=== PATIENT | male | born 1945 | race Caucasian/White ===

== ENCOUNTER 2019-07-10 10:07 | Outpatient (CLI) | payer MEDICARE, OTHER, SELFPAY ==
[2019-07-10 10:58] LABS: Basophils Percent Auto 0.4 % (0.2-1.2); Eosinophils Absolute Auto 0.1 K/mm3 (0-0.3); Eosinophils Percent Auto 1.7 % (0-4.4); Hemoglobin 12.2 g/dL (14.0-18.0); Immature Granulocyte Absolute 0.04 K/mm3 (0.00-0.031); Immature Granulocyte Percent A 0.6 % (0-0.5); Lymphocytes Absolute Auto 1.28 K/mm3 (0.9-3.2); Lymphocytes Percent Auto 18.6 % (18.3-44.2); Mean Corpuscular HGB Conc 33.9 g/dl (32-36); Mean Corpuscular Hemoglobin 33.8 pg (26-34); Mean Corpuscular Volume 99.7 fl (80-100); Mean Platelet Volume 10.3 fl (7.4-10.4); Monocytes Absolute Auto 0.5 K/mm3 (0.1-0.6); Monocytes Percent Auto 7.7 % (2.6-8.5); Neutrophils Absolute Auto 4.9 K/mm3 (1.3-6.7); Platelet Count Result 160 k/mm3 (150-375); Red Blood Count 3.61 M/mm3 (4.6-6.20); Red Cell Distribution Width 13.4 % (11.5-14.5); White Blood Count 6.9 K/mm3 (4.5-10.0)
[2019-07-10 11:11] LABS: Alanine Aminotransferase 17 U/L (4-50); Albumin Level 3.9 g/dL (3.5-5.1); Alkaline Phosphatase 60 U/L (38-126); Aspartate Amino Transferase 19 U/L (17-59); Bilirubin,Total 0.4 mg/dL (0.2-1.3); Blood Urea Nitrogen 41 mg/dL (9-20); Calcium 9.5 mg/dL (8.4-10.2); Carbon Dioxide 26 mmol/L (22-30); Chloride 103 mmol/L (98-107); Cholesterol 164 mg/dL (0-200); Estimated Glomerular Filt Rate 10; Glucose 105 mg/dL (75-110); HDL Direct 36 mg/dL; Potassium 4.7 mmol/L (3.4-5.0); Sodium 138 mmol/L (137-145); Triglycerides 147 mg/dL (<150)
[2019-07-10 11:22] LABS: LDL Cholesterol Direct 95 mg/dL
[2019-07-10 11:22] LABS: Creatinine Urine 138.1 mg/dL
[2019-07-10 11:41] LABS: Thyroid Stimulating Hormone 0.806 uIU/mL (0.465-4.680); Total Triiodothyronine (T3) 1.09 NG/ML (0.97-1.69)
[2019-07-10 11:44] LABS: MALB Creatinine Ratio 158.9 mg/g (0-30); Microalbumin Urine Random 219.5 mg/L (0-16.7)
[2019-07-10 12:00] LABS: Free T4 Free Thyroxine 0.94 ng/mL (0.78-2.19); Vitamin D 25 Hydroxy 28.8 ng/mL
== END 2019-07-10 10:08 | disposition home or self-care (01) ==
PROVIDERS: PCP Family Medicine; Visit Provider Nurse Practitioner Family
DX: N18.6 End stage renal disease (principal); I48.0 Paroxysmal atrial fibrillation; R97.20 Elevated prostate specific antigen [PSA]; E78.1 Pure hyperglyceridemia; I12.0 Hypertensive chronic kidney disease with stage 5 chronic kidney disease or end stage renal disease; D64.9 Anemia, unspecified; R53.83 Other fatigue; Z12.5 Encounter for screening for malignant neoplasm of prostate
CPT/HCPCS: 36415; 80053; 80061; 82043; 82306; 84153; 84439; 84443; 84480; 85025; G0103

== ENCOUNTER 2019-09-20 09:50 | Outpatient (CLI) | payer MEDICARE, OTHER, SELFPAY | END 2019-09-20 09:51 | disposition home or self-care (01) | LOC: ANHLAB 09:54 | PROVIDERS: PCP Family Medicine; Visit Provider Internal Medicine Cardiovascular Disease | DX: I48.0 Paroxysmal atrial fibrillation (principal); Z79.01 Long term (current) use of anticoagulants; Z79.899 Other long term (current) drug therapy | CPT/HCPCS: 36415; 80299 ==

== ENCOUNTER 2019-11-16 15:37 | Emergency (ER) | payer MEDICARE, OTHER, SELFPAY ==
[2019-11-16 15:50] VITALS: BP 132/89; PULSE 111; RESP 18; TEMP 36.6; O2SAT 99
[2019-11-16 16:13] LABS: Basophils Percent Auto 0.2 % (0.2-1.2); Eosinophils Absolute Auto 0.1 K/mm3 (0-0.3); Eosinophils Percent Auto 1.1 % (0-4.4); Hematocrit 35.5 % (42.0-52.0); Hemoglobin 12.1 g/dL (14.0-18.0); Immature Granulocyte Absolute 0.04 K/mm3 (0.00-0.031); Immature Granulocyte Percent A 0.5 % (0-0.5); Lymphocytes Absolute Auto 1.75 K/mm3 (0.9-3.2); Lymphocytes Percent Auto 21.5 % (18.3-44.2); Mean Corpuscular HGB Conc 34.1 g/dl (32-36); Mean Corpuscular Hemoglobin 34.3 pg (26-34); Mean Corpuscular Volume 100.6 fl (80-100); Mean Platelet Volume 10.8 fl (7.4-10.4); Monocytes Absolute Auto 0.6 K/mm3 (0.1-0.6); Monocytes Percent Auto 7.5 % (2.6-8.5); Neutrophils Absolute Auto 5.6 K/mm3 (1.3-6.7); Neutrophils Percent Auto 69.2 % (45.5-73.1); Platelet Count Result 160 k/mm3 (150-375); Red Blood Count 3.53 M/mm3 (4.6-6.20); Red Cell Distribution Width 13.4 % (11.5-14.5); White Blood Count 8.1 K/mm3 (4.5-10.0)
[2019-11-16 16:20] LABS: Alanine Aminotransferase 18 U/L (4-50); Albumin Level 4.3 g/dL (3.5-5.1); Alkaline Phosphatase 72 U/L (38-126); Anion Gap 13.3 mmol/L (7-16); Aspartate Amino Transferase 23 U/L (17-59); Bilirubin,Total 0.4 mg/dL (0.2-1.3); Blood Urea Nitrogen 21 mg/dL (9-20); Calcium 8.5 mg/dL (8.4-10.2); Carbon Dioxide 29 mmol/L (22-30); Chloride 95 mmol/L (98-107); Estimated CRCL calculation 15 ml/min; Estimated Glomerular Filt Rate 16; Glucose 112 mg/dL (75-110); Potassium 3.3 mmol/L (3.4-5.0); Sodium 134 mmol/L (137-145)
[2019-11-16 16:52] LABS: INR 2.2; Prothrombin Time 24.4 Seconds (11.1-14.7)
[2019-11-16 16:55] LABS: Partial Thromboplastin Time 32.6 SECONDS (22.3-36.8)
--- NOTE | 2019-11-16 17:25 | PC.NURSE ---
Attempted to urinate but is unable to.
--- NOTE | 2019-11-16 17:35 | ED.MALEGU ---
HPI - Male Genitourinary General Chief complaint: Recheck/Abnormal Lab/Rx Stated complaint: Blood in Urine Time Seen by Provider: 11/16/19 16:45 Source: patient Mode of arrival: ambulatory Limitations: no limitations History of Present Illness HPI Narrative: 74-year-old male who is a hemodialysis patient of Dr. Hernandez He is not sure what renal disorder caused his kidney failure that caused him to be on dialysis He is also on Coumadin he believes for atrial fibrillation He came to the ER today because he noticed gross hematuria He states that this happens all the time when his INR is 8 or 9, but it does not happen that often He has had some kidney stones in the past but does not have any discomfort currently To the best of his knowledge his hematuria has never been evaluated Onset (ago): day(s) Duration: intermittent Related Data Home Medications Medication Instructions Recorded Confirmed cinacalcet 30 mg PO DAILY 11/16/19 flecainide 11/16/19 meclizine mg 11/16/19 metoprolol tartrate 11/16/19 warfarin [Coumadin] 9 mg PO DAILY 11/16/19 Allergies Allergy/AdvReac Type Severity Reaction Status Date / Time No Known Allergies Allergy Verified 11/16/19 16:02 Review of Systems Review of Systems: All systems reviewed & are unremarkable except as noted in HPI and below Constitutional: Constitutional: Reports no additional constitutional complaints ENT: Reports system reviewed and no additional complaints, except as documented Cardiovascular: Cardiovascular: Reports no additional cardiovascular complaints Respiratory: Respiratory: Reports no additional respiratory complaints Gastrointestinal: Gastrointestinal: Reports no additional gastrointestinal complaints Genitourinary: Genitourinary: Reports no additional male genitourinary complaints and Reports as per HPI Musculoskeletal: Musculoskeletal: Reports no additional musculoskeletal complaints Neurologic: Reports system reviewed and no additional complaints, except as documented Hematologic/Lymphatic: Hematologic/Lymphatic: Reports easy bleeding and Reports easy bruising [facility] Social History Social History Gender identity (if verbalized by the patient): Male Exam Const: General: cooperative, comfortable and no acute distress HENMT: Head: normal to inspection Mouth: Yes moist mucous membranes abnormal Eyes: Conjunctivae: conjunctivae normal Pupils: Equal, round and reactive pupils present Resp: Effort & Inspection: normal respiratory effort and able to speak in complete sentences GI: GI Palp: No abdominal tenderness and Yes Soft to palpation : General: Yes no CVA tenderness Back/Spine/Pelvis: Back: no CVA tenderness Course Vital Signs Vital signs: Vital Signs Temperature 36.6 C 11/16/19 15:50 Pulse Rate 111 H 11/16/19 15:50 Respiratory Rate 18 11/16/19 15:50 Blood Pressure 132/89 11/16/19 15:50 Pulse Oximetry 99 11/16/19 15:50 Temperature 36.6 C 11/16/19 15:50 Pulse Rate 111 H 11/16/19 15:50 Respiratory Rate 18 11/16/19 15:50 Blood Pressure 132/89 11/16/19 15:50 Pulse Oximetry 99 11/16/19 15:50 MDM - Male Genitourinary MDM Narrative Medical decision making narrative: d/w dr lambert crf was due to obstructive nephropathy he is supposed to be following with dr kat lei Lab Data Result diagrams: 11/16/19 15:58 11/16/19 15:58 Labs: Lab Results 11/16/19 11/16/19 11/16/19 Range/Units 15:58 15:58 15:58 WBC 8.1 (4.5-10.0) K/mm3 RBC 3.53 L (4.6-6.20) M/mm3 Hgb 12.1 L (14.0-18.0) g/dL Hct 35.5 L (42.0-52.0) % MCV 100.6 H (80-100) fl MCH 34.3 H (26-34) pg MCHC 34.1 (32-36) g/dl RDW 13.4 (11.5-14.5) % Plt Count 160 (150-375) k/mm3 MPV 10.8 H (7.4-10.4) fl Immature Gran % (Auto) 0.5 (0-0.5) % Neut % (Auto) 69.2 (45.5-73.1) % Lymph
[2019-11-16 18:53] LABS: Add Urine Microscopic? YES; Appearance Urine Cloudy (Clear); Bacteria Urine Trace /hpf; Bilirubin Urine Negative (Negative); Blood Urine 3+ (Negative); Color Urine Red (Yellow); Glucose Urine UA 1+ mg/dL (Negative); Ketones Urine Trace mg/dL (Negative); Leukocyte Esterase Ur Trace LEU/UL (Negative); Nitrate Urine Negative (Negative); Protein Urine 3+ mg/dL (Negative); RBC Urine >75 /hpf (0-2); Specific Grav Ur 1.013 (1.001-1.035); Urobilinogen Urine Negative mg/dL (<2.0); WBC Clumps Urine Present /HPF; WBC Urine 16-20 /hpf
[2019-11-16 19:16] VITALS: BP 130/81; PULSE 100; RESP 19; O2SAT 97
== END 2019-11-16 19:17 | disposition home or self-care (01) ==
PROVIDERS: Emergency Medicine; Emergency Provider Emergency Medicine; PCP Family Medicine
DX: R31.9 Hematuria, unspecified (principal); N18.6 End stage renal disease; Z99.2 Dependence on renal dialysis; Z87.442 Personal history of urinary calculi; Z79.01 Long term (current) use of anticoagulants
CPT/HCPCS: 36415; 80053; 81001; 85025; 85610; 85730; 87086; 87088; 99283

== ENCOUNTER 2020-02-14 13:26 | Outpatient (CLI) | payer MEDICARE, OTHER, SELFPAY ==
[2020-02-14 13:45] VITALS: BP 90/60; PULSE 165; RESP 16
[2020-02-14 14:30] LABS: Cholesterol 165 mg/dL (0-200); HDL Direct 31 mg/dL; Triglycerides 306 mg/dL (<150)
[2020-02-14 14:41] LABS: LDL Cholesterol Direct 84 mg/dL
[2020-02-14 14:59] LABS: Free T4 Free Thyroxine 1.83 ng/mL (0.78-2.19)
[2020-02-14 15:02] LABS: Prostate Specific Antigen 14.8 ng/mL (< OR = 4.0); Thyroid Stimulating Hormone 0.188 uIU/mL (0.465-4.680); Total Triiodothyronine (T3) 0.78 NG/ML (0.97-1.69)
== END 2020-02-14 13:27 | disposition home or self-care (01) ==
PROVIDERS: PCP Family Medicine; Visit Provider Nurse Practitioner Family
DX: R97.20 Elevated prostate specific antigen [PSA] (principal); R53.83 Other fatigue; Z12.5 Encounter for screening for malignant neoplasm of prostate; Z13.220 Encounter for screening for lipoid disorders; Z13.29 Encounter for screening for other suspected endocrine disorder; E78.1 Pure hyperglyceridemia
CPT/HCPCS: 36415; 80061; 84153; 84439; 84443; 84480; G0103

== ENCOUNTER 2020-03-03 16:00 | Outpatient (CLI) | payer MEDICARE, OTHER, SELFPAY ==
--- NOTE | ~2020-03-03 | XR_ITS ---
EXAMINATION: XR chest 2V DATE: 03/03/2020 16:26 INDICATION: Shortness of breath. Dizziness. TECHNIQUE: Frontal and lateral views of the chest were obtained. COMPARISON: Chest 2 views 10/31/2015 FINDINGS: A calcified right lung nodule and calcified right hilar lymph nodes are consistent with old granulomatous disease. There is mild scarring at the lung apices. There are mild airspace opacities in right midlung zone and left lower lung zone. No pleural effusion or pneumothorax. The heart size i s normal. IMPRESSION: 1. Mild airspace opacities in right midlung zone and left lower lung zone, consistent with atelectasi s versus pneumonia. Reviewed, dictated and finalized at location B. KEEPER IMPRESSION: 1. Mild airspace opacities in right midlung zone and left lower lung zone, cons istent with atelectasis versus pneumonia.
== END 2020-03-03 16:01 | disposition home or self-care (01) ==
LOC: ANHIMG 16:05
PROVIDERS: PCP Family Medicine; Visit Provider Nurse Practitioner Family
DX: R06.02 Shortness of breath (principal); N18.6 End stage renal disease; I48.91 Unspecified atrial fibrillation; R42 Dizziness and giddiness; R91.1 Solitary pulmonary nodule; Z99.2 Dependence on renal dialysis
CPT/HCPCS: 71046

== ENCOUNTER 2020-03-03 16:26 | Observation (INO) | payer MEDICARE, OTHER, SELFPAY ==
[2020-03-03] VITALS (26 sets, daily range): BP systolic 109–137; BP diastolic 58–78; PULSE 100–113; RESP 13–25; TEMP 36.4–37.6; O2SAT 95–100; BMI 25.2
--- NOTE | ~2020-03-03 | CT_ITS ---
EXAMINATION: CT brain wo con DATE: 03/03/2020 17:17 INDICATION: Confusion TECHNIQUE: Computed tomography (CT) of the head was performed without intravenous contrast. Sagittal and coronal reconstructions were performed. The mA was adjusted according to patient size. Iterative reconstruction technique was employed. The dose-length product was 605.33 mGy-cm. COMPARISON: None FINDINGS: No acute intracranial hemorrhage, acute infarction or mass/mass effect. A couple small old lacunar in farcts in the left frontal lobe white matter and one in the right frontal lobe white matter. There is symmetric prominence of the sulci consistent with mild age-appropriate diffuse cerebral volume loss. Ventricles are normal and symmetric. Mild scattered periventricular and subcortical white matter hyp oattenuation consistent with chronic small vessel ischemic disease. Mucosal thickening the left ethm oid and maxillary sinuses. The orbits and mastoid air cells are normal. Intracranial calcified cerebr al atherosclerosis is noted. IMPRESSION: 1. Small old lacunar infarcts in the left and right frontal lobe white matter. 2. Age-related changes including mild diffuse volume loss and mild scattered white matter hypoattenua tion consistent with chronic small vessel ischemic disease. Reviewed, dictated and finalized at location A. TRAFFIC CONTROL EQUIPMENT REPAIRER IMPRESSION: 1. Small old lacunar infarcts in the left and right frontal lobe white matter. 2. Age-related changes including mild diffuse volume loss and mild scattered wh ite matter hypoattenuation consistent with chronic small vessel ischemic diseas e.
--- NOTE | 2020-03-03 17:10 | ED.SOB ---
HPI - SOB/Dyspnea General Chief Complaint: Shortness of Breath/Dyspnea Stated Complaint: Multiple Complaints, SOB, Low BP Time Seen by Provider: 03/03/20 16:39 History of Present Illness HPI Narrative: Patient is a 74-year-old male who presents the ER with complaints of shortness of breath and low blood pressure. Patient reports he has had exertional shortness of breath for 3 weeks since having COVID-19. Because of his shortness of breath his primary care physician sent him to have an outpatient chest x-ray. While walking back from having his x-ray patient got lightheaded and was acting off so you are not which was normal his blood pressure was taken and found to be low and he was sent to the ER for further evaluation. On 02/28/2020 patient suffered a nosebleed and had recurrence the next day. He ended up having a Rhino Rocket placed. It was found that his INR was 10. He was given vitamin K. His most recent INR was 1.2 on 03/01/2020. He is also at the doctor today to find out when he should initiate his Coumadin again. He still has his Rhino Rocket in place. Patient's family members present reports that his mannerisms are markedly slower than typical and he is having difficulty with quick recall and some understanding of questions. Related Data Home Medications Medication Instructions Recorded Confirmed cinacalcet 30 mg PO DAILY 11/16/19 flecainide 11/16/19 meclizine mg 11/16/19 metoprolol tartrate 11/16/19 warfarin [Coumadin] 9 mg PO DAILY 11/16/19 Allergies Allergy/AdvReac Type Severity Reaction Status Date / Time No Known Allergies Allergy Verified 11/16/19 16:02 Review of Systems Review of Systems: All systems reviewed & are unremarkable except as noted in HPI and below Constitutional: Constitutional: Denies chills, Denies fever(s) and Reports weakness ENT: Denies nasal congestion and Denies sore throat Comments: Recent nosebleed Cardiovascular: Cardiovascular: Denies chest pain, Denies rapid heart rate and Denies radiating jaw, neck or arm pain Respiratory: Respiratory: Denies cough, Reports dyspnea and Denies wheezing [facility] Past Medical History Medical History (Updated 03/03/20 @ 22:31 by Adin Mckenzie MD) Atrial fibrillation End stage renal disease GERD (gastroesophageal reflux disease) Surgical History Surgical History (Updated 03/03/20 @ 17:15 by Adin Mckenzie MD) H/O prostatectomy Social History Social History Gender identity (if verbalized by the patient): Male Exam Narrative: Exam Narrative: GENERAL: Well-appearing, well-nourished, and in no acute distress. HEAD: Normocephalic, atraumatic. ENT: Left with Rhino Rocket present with clotted blood surrounding it. CHEST: Clear to auscultation. No respiratory distress. HEART: Regular rate and rhythm. Normal peripheral pulses. ABDOMEN: Soft, nontender, nondistended. EXTREMITIES: Normal range of motion. No edema. SKIN: Warm, dry, no rash. NEURO: Alert and oriented x3. PSYCH: Normal mood and affect. Course Course Emergency Course: Admit for observation blood transfusion. Symptomatic anemia. Hospitalist has accepted the patient. INR subtherapeutic, will hold of on correction until he can be seen by ENT for rapid rhino removal. Vital Signs Vital signs: Vital Signs Blood Pressure 124/58 L 03/03/20 16:40 Pulse Oximetry 100 03/03/20 16:40 Temperature 99.5 F 03/03/20 21:20 Pulse Rate 100 03/03/20 21:20 Respiratory Rate 15 03/03/20 21:20 Blood Pressure 123/68 03/03/20 21:20 Pulse Oximetry 99 03/03/20 21:20 MDM - SOB/Dyspnea Lab Data Result diagrams: 03/03/20 17:44 03/03/20 17:44 Labs: Lab Results 03/03/20 03/03/20 03/03/20 Range/Units 17:44 17:44 17:44 WBC 6.7 (4.5-10.0) K/mm3 RBC 2.20 L (4.6-6.20) M/mm3 Hgb 7.5 L D (14.0-18.0) g/dL Hct 21.9 L (42.0-52.0) % MCV 99.5 (
[2020-03-03 17:49] LABS: Basophils Percent Auto 0.1 % (0.2-1.2); Eosinophils Percent Auto 0.3 % (0-4.4); Hematocrit 21.9 % (42.0-52.0); Hemoglobin 7.5 g/dL (14.0-18.0); Immature Granulocyte Absolute 0.06 K/mm3 (0.00-0.031); Immature Granulocyte Percent A 0.9 % (0-0.5); Lymphocytes Absolute Auto 0.61 K/mm3 (0.9-3.2); Lymphocytes Percent Auto 9.1 % (18.3-44.2); Mean Corpuscular HGB Conc 34.2 g/dl (32-36); Mean Corpuscular Hemoglobin 34.1 pg (26-34); Mean Corpuscular Volume 99.5 fl (80-100); Mean Platelet Volume 9.6 fl (7.4-10.4); Monocytes Absolute Auto 0.6 K/mm3 (0.1-0.6); Monocytes Percent Auto 8.8 % (2.6-8.5); Neutrophils Absolute Auto 5.5 K/mm3 (1.3-6.7); Neutrophils Percent Auto 80.8 % (45.5-73.1); Platelet Count Result 90 k/mm3 (150-375); Red Cell Distribution Width 12.8 % (11.5-14.5); White Blood Count 6.7 K/mm3 (4.5-10.0)
[2020-03-03 18:00] LABS: Chloride 97 mmol/L (98-107); INR 1.1; Partial Thromboplastin Time 33.1 SECONDS (22.3-36.8)
[2020-03-03 18:12] LABS: Anion Gap 7 mmol/L (8-16); Blood Urea Nitrogen 21 mg/dL (9-20); Calcium 8.2 mg/dL (8.4-10.2); Carbon Dioxide 32 mmol/L (22-30); Estimated CRCL calculation 13 ml/min; Estimated Glomerular Filt Rate 13; Glucose 97 mg/dL (75-110); Potassium 3.2 mmol/L (3.4-5.0); Sodium 136 mmol/L (137-145)
--- NOTE | 2020-03-03 19:43 | PC.NURSE ---
Blood consent obtained from patient at this time. Awaiting PRBC's from blood bank. Patient updated.
--- NOTE | 2020-03-03 21:25 | PC.NURSE ---
2124- Report called to SONJA Thornton on IMU floor.
--- NOTE | 2020-03-03 22:58 | ADMGEN ---
This patient, Danyel Sterling, was admitted to IMU Room 214-01. Patient/family oriented to hospital policies and general routines including ID bracelet, bed and alarms, visiting hours, pain management, procedures, bathroom and other care routines, personal items, smoking policy, room service/diet, and visiting hours. Information on how to activate the Rapid Response Team has been discussed. Patient/Family are encouraged to report perceived risks to care and to ask questions if they do not understand what they are told or what they should do. arrived at 2230. report from Nika CASILLAS
--- NOTE | 2020-03-03 23:54 | PM.IMHP ---
H&P: HPI History of Present Illness Date/Time: 03/03/20 23:54 Chief complaint: anemia, subtherapeutic inr Narrative: Danyel Sterling is a 74 year old male has end-stage renal disease and has dialysis Tuesday. The patient did have dialysis today. The patient was diagnosed with COVID about 3 weeks ago. He has been going to [facility] [place] since he was diagnosed with covid 19. The patient has been short of breath since then. The patient has just been very tired. The patient was walking back from having an x-ray here today and got lightheaded and felt like he is going to pass out. On 02/28/2020 the patient suffered a nose bleed and had recurrence next day. The patient has a rhino rocket in place. Who was found have a INR that time he was given vitamin K and his most recent INR is 1.2 on 03/01/2020 patient was restarted on his Coumadin but and overdose. Patient's INR is 1.1 today. Patient is getting 1 unit packed red blood cells. Patient has paroxysmal atrial fibrillation is now in sinus rhythm. That is why he is on Coumadin patient stated he has been holding his metoprolol because his blood pressures been dropping. He still continues to take his flecainide. 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 3.2. GFR 13. Infarcts the left and right frontal lobe white matter. Age-related changes glued mild diffuse volume loss and mild scattered white matter hypoattenuation consistent with small vessel ischemic disease. Admitted to IMU for possible syncopal episode and anemia end-stage renal disease. Date of service is 03/03/2020 Review of Systems Review of Systems: All systems reviewed & are unremarkable except as noted in HPI and below Constitutional: Constitutional: Reports as per HPI and Reports no additional constitutional complaints Eyes: Eyes: Reports as per HPI and Reports no additional eye complaints ENT: Reports system reviewed and no additional complaints, except as documented and Reports Normal hearing present Cardiovascular: Cardiovascular: Reports no additional cardiovascular complaints Respiratory: Respiratory: Reports no additional respiratory complaints and Reports no additional respiratory complaints Gastrointestinal: Gastrointestinal: Reports as per HPI and Reports no additional gastrointestinal complaints Musculoskeletal: Musculoskeletal: Reports no additional musculoskeletal complaints Integumentary/Breasts: Skin/Breast: Reports system reviewed and no additional complaints, except as docu and Reports as per HPI Neurologic: Reports system reviewed and no additional complaints, except as documented, Reports as per HPI and Reports Normal hearing present Psychiatric: Psychiatric: Reports no additional psychiatric complaints and Reports as per HPI Endocrine: Endocrine: Reports no additional endocrine complaints Hematologic/Lymphatic: Hematologic/Lymphatic: Reports no additional hematologic/lymphatic complaints Allergic/Immunologic: Allergic/Immunologic: Reports no additional allergic/immunologic complaints [facility] Past Medical History Medical History (Updated 03/04/20 @ 00:15 by Yancy Turpin NP) Atrial fibrillation BPH (benign prostatic hyperplasia) End stage renal disease Dialysis Tuesday and 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 GERD (gastroesophageal reflux disease) History of 2019 novel coronavirus disease (COVID-19) History of CVA (cerebrovascular accident) Small old lacunar infarcts in the left and right frontal lobe white matter. Hyperparathyroidism Obstructive nephropathy Obstructing nephrolithiasis Paroxysmal atrial fibrillation On daily Coumadin Supratherapeutic INR Surgical History Surgical History (Updated 03/04/20 @ 00:08 by Yancy Turpin NP) H/O lithotripsy H/O prostatectomy S/P dialysis catheter insertion AV fistula left forearm Family History Family History Father Brain aneurysm Mother
[2020-03-04] VITALS (10 sets, daily range): BP systolic 108–122; BP diastolic 59–63; PULSE 97–124; RESP 16–20; TEMP 36.2–36.6; O2SAT 98–100
[2020-03-04 00:16] LABS: Hematocrit 24.3 % (42.0-52.0); Hemoglobin 8.4 g/dL (14.0-18.0)
[2020-03-04] MEDS: dilTIAZem HCl INJ 25 MG/5 ML VIAL 10 MG IV PUSH (01:49)
[2020-03-04 04:58] LABS: Basophils Percent Auto 0.3 % (0.2-1.2); Eosinophils Absolute Auto 0.1 K/mm3 (0-0.3); Eosinophils Percent Auto 0.8 % (0-4.4); Hematocrit 26.9 % (42.0-52.0); Hemoglobin 9.3 g/dL (14.0-18.0); Immature Granulocyte Absolute 0.04 K/mm3 (0.00-0.031); Immature Granulocyte Percent A 0.5 % (0-0.5); Lymphocytes Absolute Auto 0.85 K/mm3 (0.9-3.2); Lymphocytes Percent Auto 11.2 % (18.3-44.2); Mean Corpuscular HGB Conc 34.6 g/dl (32-36); Mean Corpuscular Hemoglobin 33.5 pg (26-34); Mean Corpuscular Volume 96.8 fl (80-100); Mean Platelet Volume 10.2 fl (7.4-10.4); Monocytes Absolute Auto 0.7 K/mm3 (0.1-0.6); Monocytes Percent Auto 9.1 % (2.6-8.5); Neutrophils Percent Auto 78.1 % (45.5-73.1); Platelet Count Result 111 k/mm3 (150-375); Red Blood Count 2.78 M/mm3 (4.6-6.20); White Blood Count 7.6 K/mm3 (4.5-10.0)
[2020-03-04 05:12] LABS: INR 1.2; Prothrombin Time 15.7 Seconds (11.1-14.7)
[2020-03-04 05:20] LABS: Calcium 8.7 mg/dL (8.4-10.2); Lactate Dehydrogenase 300 U/L (313-618); Magnesium 1.9 mg/dL (1.6-2.3)
--- NOTE | 2020-03-04 09:15 | PM.CNNEP ---
Assessment and Plan Additional Plan 1. HAD LOW HGB 7.5- RECEIVED 1 U PRBCS W GOOD RESULT- HEMOGLOBIN UP TO 9.3 2. IF STILL INPT TOMORROW- WILL GET DIALYSIS TOMORROW HERE. 3. EPOGEN MWF 4. HIS HYPOTENSION HAS BEEN INTERMITTENT- CURRENTLY MOSTLY DUE TO ANEMIA. HE HAS BEEN TOLD IN THE PAST TO HOLD METOPROLOL ON DIALYSIS DAYS. History of Present Illness Reason for Consult Consult date: 03/04/20 Chief Complaint Chief complaint: anemia, subtherapeutic inr Review of Systems Review of Systems: Narrative: see h&p and er notes. 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 Hyperparathyroidism Obstructive nephropathy Obstructing nephrolithiasis Paroxysmal atrial fibrillation On daily Coumadin Supratherapeutic INR Surgical History Surgical History (Updated 03/04/20 @ 00:08 by Yancy Turpin NP) H/O lithotripsy H/O prostatectomy S/P dialysis catheter insertion AV fistula left forearm Family History Family History Father Brain aneurysm Mother Acute myocardial infarction Assumed. Patient stated that his mom during the night in her sleep. Social History Social History (Updated 03/04/20 @ 00:10 by Yancy Turpin NP) Social History: The patient is and lives with his . He is a full code. The is the durable power document review attorney for healthcare. The patient has 1 biological son. Patient is a lifelong nonsmoker. He does not use marijuana, alcohol or illegal substances. Smoking status: Never smoker Alcohol intake: never Substance use: never Living arrangements: with family Gender identity (if verbalized by the patient): Male Spiritual care concerns: No Meds Home Medications and Allergies Home Medications Medication Instructions Recorded Confirmed Type cinacalcet 30 mg PO DAILY 11/16/19 03/03/20 History flecainide 50 mg PO DAILY 11/16/19 03/03/20 History meclizine 25 mg PO DAILY 11/16/19 03/03/20 History warfarin [Coumadin] 5 mg PO DAILY 11/16/19 03/03/20 History sevelamer carbonate 800 mg PO TIDWMEAL PRN 03/03/20 03/03/20 History Allergies Allergy/AdvReac Type Severity Reaction Status Date / Time No Known Allergies Allergy Verified 11/16/19 16:02 Vital Signs Vital Signs - 24 hr 03/03/20 16:40 03/03/20 16:41 03/03/20 16:45 Temperature 37.0 C Pulse Rate 104 H Respiratory Rate 25 H Blood Pressure 124/58 L 125/58 L Pulse Oximetry 100 100 100 03/03/20 17:00 03/03/20 17:20 03/03/20 17:22 Temperature Pulse Rate 113 H 100 107 H Respiratory Rate 20 19 Blood Pressure 130/78 Pulse Oximetry 100 100 98 03/03/20 17:30 03/03/20 17:36 03/03/20 17:59 Temperature Pulse Rate 111 H 108 H 110 H Respiratory Rate 17 16 14 Blood Pressure 130/74 Pulse Oximetry 99 98 99 03/03/20 18:00 03/03/20 18:01 03/03/20 18:15 Temperature Pulse Rate 110 H 107 H 108 H Respiratory Rate 17 15 13 Blood Pressure 135/69 Pulse Oximetry 99 99 100 03/03/20 18:30 03/03/20 18:31 03/03/20 18:45 Temperature Pulse Rate Respiratory Rate Blood Pressure 137/77 Pulse Oximetry 98 99 100 03/03/20 19:16 03/03/20 19:17 03/03/20 19:30 Temperature Pulse Rate 112 H 109 H 110 H Respiratory Rate 19 19 16 Blood Pressure 125/61 Pulse Oximetry 96 97 97 03/03/20 19:31 03/03/20 21:05 03/03/20 21:20 Temperature 37.3 C 37.5 C Pulse Rate 107 H 106 H 100 Respiratory Rate 18 19 15 Blood Pressure 109/72 130/72
[2020-03-04] MEDS: MECLIZINE HCL 25 MG TABLET PO (09:25)
[2020-03-04] MEDS: FLECAINIDE ACETATE 50 MG TABLET PO (09:25)
[2020-03-04] MEDS: CINACALCET 30 MG TABLET PO (09:25)
--- NOTE | 2020-03-04 13:48 | PM.DS ---
DS: Admitting Diagnosis Admitting Diagnosis Admitting Diagnosis: anemia, subtherapeutic inr DS: Discharge Diagnosis Discharge Diagnosis (1) Epistaxis: Code(s): R04.0 - Epistaxis Status: Acute Assessment and Plan: The patient has a rhino rocket the left nare This is due to super elevated INR of 10.0. The patient was given vitamin K at that time. Patient's INR is now 1.1 and he has been restarted on his Coumadin. PT to follow with Dr Daniel GUIDO MD. (2) End stage renal disease: Code(s): N18.6 - End stage renal disease Status: Chronic Assessment and Plan: Dialysis on Tuesday. Epogen on the same days. Pt can be discharged and have his dialysis [place] at dialysis center. Pt should hold his metoprolol on the day of dialysis. Pt seen by Dr Haney today, nephrology ok to discharge. (3) Anemia: Code(s): D64.9 - Anemia, unspecified Status: Acute Assessment and Plan: Sp blood transfusion, hb is 9 today (4) Near syncope: Code(s): R55 - Syncope and collapse Status: Acute Assessment and Plan: The patient stated he stop taking his metoprolol and only takes the flecainide for his atrial fib on day of dialysis. (5) Subtherapeutic international normalized ratio (INR): Code(s): R79.1 - Abnormal coagulation profile Status: Acute Assessment and Plan: Patient's INR was 1.1 today he has been restarted his Coumadin. (6) Hyperparathyroidism: Code(s): E21.3 - Hyperparathyroidism, unspecified Status: Chronic Assessment and Plan: Continue with cinacalct (7) Paroxysmal atrial fibrillation: Code(s): I48.0 - Paroxysmal atrial fibrillation Status: Chronic Assessment and Plan: Patient has been restarted on the Coumadin. Continue with the flecainide. (8) Obstructive nephropathy: Code(s): N13.8 - Other obstructive and reflux uropathy Status: Chronic Assessment and Plan: The patient has end-stage renal disease and has dialysis Tuesday. (9) BPH (benign prostatic hyperplasia): Code(s): N40.0 - Benign prostatic hyperplasia without lower urinary tract symptoms Status: Chronic Assessment and Plan: Continue home medication. DS: Summary Time Spent with Patient Time attestation: Total time spent providing and/or coordinating discharge services:40 minutes on the day of discharge Exam Narrative: Exam Narrative: Chronically ill appearing Chest: Chest palpation & inspection: normal inspection of the chest Resp: Effort & Inspection: normal respiratory effort Auscultation: clear to auscultation bilaterally Percussion: percussion normal Cardio: Palpation: normal PMI Rate: regular rate Rhythm: regular rhythm Heart sounds: S1 normal heart sound present and S2 normal heart sound present Peripheral pulses: Peripheral pulses 2+ throughout GI: Inspection: normal to inspection Auscultation: normal bowel sounds Back/Spine/Pelvis: Back: no CVA tenderness Cervical Spine: cervical ROM normal Skin: General skin exam: normal color Lesions: no lesions Rashes: no rashes Trauma: no lacerations or abrasions Wounds: no wounds Hair: normal Nails: normal Neuro: General: oriented to person, oriented to place, oriented to time and patient oriented x3 Cranial nerves: Yes Equal, round and reactive pupils present and Yes Normal hearing present Cognition (Neuro): normal cognition Speech: normal speech Gait exam (Neuro): Normal gait present Motor exam (neuro): 5/5 motor strength present throughout Sensory Exam: normal sensation Extrem: General: normal to inspection Right upper extremity: normal to inspection and shoulder/upper arm Left upper extremity: normal to inspection and shoulder/upper arm (Left upper arm positive bruit and thrill AV fistula) Right lower extremity: normal to inspection Left lower extremity: normal to inspection DS: Data Data Complet
== END 2020-03-04 14:35 | disposition home or self-care (01) ==
LOC: ANHED 16:46 → ANHIMU 22:31
PROVIDERS: Nurse Practitioner; Admitting Provider Family Medicine; Emergency Provider Emergency Medicine; PCP Family Medicine; Visit Provider Family Medicine
DX: R04.0 Epistaxis (principal); N18.6 End stage renal disease; D64.9 Anemia, unspecified; R55 Syncope and collapse; R06.09 Other forms of dyspnea; R79.1 Abnormal coagulation profile; E21.3 Hyperparathyroidism, unspecified; I95.9 Hypotension, unspecified; I48.0 Paroxysmal atrial fibrillation; N13.8 Other obstructive and reflux uropathy; N40.0 Benign prostatic hyperplasia without lower urinary tract symptoms; K21.9 Gastro-esophageal reflux disease without esophagitis; Z86.73 Personal history of transient ischemic attack (TIA), and cerebral infarction without residual deficits; Z86.19 Personal history of other infectious and parasitic diseases; Z99.2 Dependence on renal dialysis; Z79.01 Long term (current) use of anticoagulants
CPT/HCPCS: 36415; 36430; 70450; 71046; 80048; 82310; 83615; 83735; 84443; 85014; 85018; 85025; 85610; 85730; 86850; 86900; 86901; 86923; 96374; 99285; A9270; G0378; P9016

== ENCOUNTER 2020-04-22 09:11 | Outpatient (CLI) | payer MEDICARE, OTHER, SELFPAY | END 2020-04-22 09:12 | disposition home or self-care (01) | PROVIDERS: PCP Family Medicine; Visit Provider Nurse Practitioner Adult Health | DX: I48.0 Paroxysmal atrial fibrillation (principal) | CPT/HCPCS: 36415 ==

== ENCOUNTER 2020-10-21 11:19 | Outpatient (CLI) | payer MEDICARE, OTHER, SELFPAY ==
[2020-10-21 12:04] LABS: Cholesterol 164 mg/dL (0-200); HDL Direct 38 mg/dL; Triglycerides 168 mg/dL (<150)
[2020-10-21 12:15] LABS: LDL Cholesterol Direct 91 mg/dL
== END 2020-10-21 11:20 | disposition home or self-care (01) ==
PROVIDERS: PCP Family Medicine; Visit Provider Internal Medicine Cardiovascular Disease
DX: R09.89 Other specified symptoms and signs involving the circulatory and respiratory systems (principal); Z79.899 Other long term (current) drug therapy
CPT/HCPCS: 36415; 80061; 80181

== ENCOUNTER 2020-11-04 10:20 | Outpatient (CLI) | payer MEDICARE, OTHER, SELFPAY ==
--- NOTE | ~2020-11-04 | US_ITS ---
EXAMINATION: US carotid duplex BI DATE: 11/04/2020 10:55 INDICATION: Left carotid bruit TECHNIQUE: Grayscale, color Doppler, and pulsed Doppler images of the cervical carotid arteries were obtained. The degree of vessel stenosis is placed in one of the following categories: normal, <50%, 5 0-69%, >=70% but less than near-occlusion, near-occlusion, or total occlusion. Note that percent sten osis relative to normal distal artery lumen diameter is indirectly measured from velocity measurement s as described by Scott, et al. Radiology 2003; [id number]. COMPARISON: None. FINDINGS: RIGHT: The right common carotid artery (CCA) peak systolic velocity (PSV) is 97 cm/s. The right internal car otid artery (ICA) PSV is 66 cm/s. The right ICA end-diastolic velocity (EDV) is 21 cm/s. The right IC A/CCA PSV ratio is 0.7. Grayscale and color Doppler images yield an estimate of <50% diameter reducti on from plaque in the ICA. The external carotid artery (ECA) PSV is 65 cm/s. There is antegrade flow in the right vertebral artery. LEFT: The left CCA PSV is 65 cm/s. The left ICA PSV is 67 cm/s. The left ICA EDV is 16 cm/s. The left ICA/C CA PSV ratio is 1.0. Grayscale and color Doppler images yield an estimate of <50% diameter reduction from plaque in the ICA. The ECA PSV is 53 cm/s. There is antegrade flow in the left vertebral artery. IMPRESSION: 1. <50% stenosis in the right internal carotid artery. 2. <50% stenosis in the left internal carotid artery. Reviewed, dictated and finalized at location A.
== END 2020-11-04 10:21 | disposition home or self-care (01) ==
LOC: ANHIMG 10:23
PROVIDERS: PCP Family Medicine; Visit Provider Internal Medicine Cardiovascular Disease
DX: R09.89 Other specified symptoms and signs involving the circulatory and respiratory systems (principal); I65.23 Occlusion and stenosis of bilateral carotid arteries
CPT/HCPCS: 93880

== ENCOUNTER 2021-04-14 11:23 | Outpatient (CLI) | payer MEDICARE, OTHER, SELFPAY | END 2021-04-14 11:24 | disposition home or self-care (01) | PROVIDERS: PCP Family Medicine; Visit Provider Nurse Practitioner Adult Health | DX: Z51.81 Encounter for therapeutic drug level monitoring (principal); Z79.899 Other long term (current) drug therapy | CPT/HCPCS: 36415; 80181 ==

== ENCOUNTER 2021-06-09 13:02 | Outpatient (CLI) | payer MEDICARE, OTHER, SELFPAY | END 2021-06-09 13:03 | disposition home or self-care (01) | LOC: ANHLAB 13:05 | PROVIDERS: PCP Family Medicine; Visit Provider Nurse Practitioner Adult Health | DX: Z79.899 Other long term (current) drug therapy (principal) | CPT/HCPCS: 99199; 36415; 80181 ==

== ENCOUNTER 2021-11-03 12:38 | Outpatient (CLI) | payer MEDICARE, OTHER, SELFPAY ==
[2021-11-03 15:53] LABS: Digoxin < 0.4 ng/mL (0.8-2.0)
== END 2021-11-03 12:39 | disposition home or self-care (01) ==
PROVIDERS: PCP Family Medicine; Visit Provider Internal Medicine Cardiovascular Disease
DX: I48.0 Paroxysmal atrial fibrillation (principal); Z51.81 Encounter for therapeutic drug level monitoring; Z79.899 Other long term (current) drug therapy
CPT/HCPCS: 36415; 80162

== ENCOUNTER 2022-04-23 14:38 | Outpatient (CLI) | payer MEDICARE, OTHER, SELFPAY | END 2022-04-23 14:39 | disposition home or self-care (01) | LOC: ANHLAB 14:43 | PROVIDERS: PCP Family Medicine; Visit Provider Internal Medicine Cardiovascular Disease | DX: Z51.81 Encounter for therapeutic drug level monitoring (principal); Z79.899 Other long term (current) drug therapy; I48.0 Paroxysmal atrial fibrillation | CPT/HCPCS: 36415; 80181 ==

== ENCOUNTER 2022-07-13 10:07 | Outpatient (CLI) | payer MEDICARE, OTHER, SELFPAY ==
[2022-07-13 10:56] LABS: Basophils Percent Auto 0.4 % (0.2-1.2); Eosinophils Absolute Auto 0.1 K/mm3 (0-0.3); Hematocrit 31.3 % (42.0-52.0); Immature Granulocyte Absolute 0.02 K/mm3 (0.00-0.031); Immature Granulocyte Percent A 0.4 % (0-0.5); Lymphocytes Absolute Auto 0.47 K/mm3 (0.9-3.2); Lymphocytes Percent Auto 8.4 % (18.3-44.2); Mean Corpuscular HGB Conc 31.9 g/dl (32-36); Mean Corpuscular Hemoglobin 31.9 pg (26-34); Mean Platelet Volume 9.3 fl (7.4-10.4); Monocytes Absolute Auto 0.4 K/mm3 (0.1-0.6); Monocytes Percent Auto 7.2 % (2.6-8.5); Neutrophils Absolute Auto 4.6 K/mm3 (1.3-6.7); Neutrophils Percent Auto 81.6 % (45.5-73.1); Platelet Count Result 123 k/mm3 (150-375); Red Blood Count 3.13 M/mm3 (4.6-6.20); Red Cell Distribution Width 14.8 % (11.5-14.5); White Blood Count 5.6 K/mm3 (4.5-10.0)
[2022-07-13 13:50] LABS: Erythrocyte Sedimentation Rate 69 mm/hr (0-20)
== END 2022-07-13 10:08 | disposition home or self-care (01) ==
LOC: ANHLAB 10:12
PROVIDERS: PCP Family Medicine; Visit Provider Internal Medicine Cardiovascular Disease
DX: I34.0 Nonrheumatic mitral (valve) insufficiency (principal); N18.6 End stage renal disease
CPT/HCPCS: 36415; 85025; 85652; 87040

== ENCOUNTER 2022-10-05 15:03 | Outpatient (CLI) | payer MEDICARE, OTHER, SELFPAY | END 2022-10-05 15:04 | disposition home or self-care (01) | PROVIDERS: PCP Family Medicine; Visit Provider Internal Medicine Cardiovascular Disease | DX: I48.0 Paroxysmal atrial fibrillation (principal); Z79.899 Other long term (current) drug therapy | CPT/HCPCS: 36415; 80181 ==

== ENCOUNTER 2024-01-25 09:14 | Outpatient (CLI) | payer MEDICARE, OTHER, SELFPAY ==
[2024-01-25 09:42] LABS: Basophils Percent Auto 0.6 % (0.2-1.2); Eosinophils Absolute Auto 0.1 K/mm3 (0-0.3); Eosinophils Percent Auto 2.7 % (0-4.4); Hematocrit 31.8 % (42.0-52.0); Hemoglobin 10.5 g/dL (14.0-18.0); Immature Granulocyte Absolute 0.03 K/mm3 (0.00-0.031); Immature Granulocyte Percent A 0.6 % (0-0.5); Lymphocytes Absolute Auto 0.63 K/mm3 (0.9-3.2); Mean Corpuscular Hemoglobin 33.2 pg (26-34); Mean Corpuscular Volume 100.6 fl (80-100); Mean Platelet Volume 10.3 fl (7.4-10.4); Monocytes Absolute Auto 0.5 K/mm3 (0.1-0.6); Monocytes Percent Auto 9.7 % (2.6-8.5); Neutrophils Absolute Auto 3.9 K/mm3 (1.3-6.7); Neutrophils Percent Auto 74.4 % (45.5-73.1); Platelet Count Result 114 k/mm3 (150-375); Red Blood Count 3.16 M/mm3 (4.6-6.20); Red Cell Distribution Width 14.4 % (11.5-14.5); White Blood Count 5.3 K/mm3 (4.5-10.0)
[2024-01-25 09:55] LABS: Alanine Aminotransferase 14 U/L (6-50); Alkaline Phosphatase 86 U/L (38-126); Anion Gap 13 mmol/L (4-12); Aspartate Amino Transferase 17 U/L (17-59); Bilirubin,Total 0.8 mg/dL (0.2-1.3); Blood Urea Nitrogen 48 mg/dL (9-20); Calcium 7.9 mg/dL (8.4-10.2); Carbon Dioxide 29 mmol/L (22-30); Chloride 99 mmol/L (98-107); Cholesterol 128 mg/dL (0-200); Estimated Glomerular Filt Rate 6; Glucose 93 mg/dL (65-110); HDL Direct 48 mg/dL; Potassium 3.5 mmol/L (3.4-5.0); Sodium 141 mmol/L (137-145); Triglycerides 54 mg/dL (<150)
[2024-01-25 10:23] LABS: Free T4 Free Thyroxine 1.69 ng/mL (0.78-2.19)
[2024-01-25 10:27] LABS: Prostate Specific Antigen 4.3 ng/mL (< OR = 4.0)
[2024-01-25 10:50] LABS: LDL Cholesterol Direct 56 mg/dL
[2024-01-27 08:09] LABS: Triiodothyronine T3 Free 2.1 pg/mL (2.3-4.2)
== END 2024-01-25 09:15 | disposition home or self-care (01) ==
LOC: ANHLAB 09:24
PROVIDERS: PCP Family Medicine; Visit Provider Family Medicine
DX: Z12.5 Encounter for screening for malignant neoplasm of prostate (principal); E78.5 Hyperlipidemia, unspecified; I10 Essential (primary) hypertension; R53.83 Other fatigue
CPT/HCPCS: 36415; 80053; 80061; 84153; 84439; 84443; 84481; 85025; G0103

== ENCOUNTER 2024-07-10 10:43 | Outpatient (CLI) | payer MEDICARE, OTHER, SELFPAY ==
--- OUTSIDE RECORDS SUMMARY | 2024-07-10 12:11 | XMS_ITS | Clinical Summary ---
Author Organization [facility] Address [address] [place] [address] Phone Care Team Providers Care Trench Trimmer Fine Name Role Phone Randolph De Paz MD Primary Care Provider [phone] Allergies No known active allergies Medications famotidine (Pepcid) 20 MG Tablet Take 10 mg by mouth daily. Active Warfarin Sodium (COUMADIN PO) Take 8 mg by mouth daily. Active meclizine (ANTIVERT) 12.5 MG Tablet Take 12.5 mg by mouth daily. Active flecainide (TAMBOCOR) 50 MG Tablet Take 50 mg by mouth daily. Active Sevelamer Carbonate (RENVELA PO) Take by mouth as needed. Active Active Problems Problem Noted Date Diagnosed Date Acute renal failure 05/15/2015 Rapid atrial fibrillation 05/15/2015 HTN (hypertension) 05/15/2015 Nausea & vomiting 05/15/2015 Weakness 05/15/2015 Nephrolithiasis 05/15/2015 Anemia of renal disease 05/15/2015 Hyperkalemia 05/15/2015 Hypernatremia 05/15/2015 Elevated troponin I level 05/15/2015 Social History Tobacco Use Types Packs/Day Years Used Date Smoking Tobacco: Never Smokeless Tobacco: Never Alcohol Use Standard Drinks/Week Comments No 0 (1 standard drink = 0.6 oz pur e alcohol) Sex and Gender Information Value Date Recorded Sex Assigned at Not on file Legal Sex Male 9:46 PM CDT Gender Identity Not on file Sexual Orientation Not on file Last Filed Vital Signs Vital Sign Reading Time Taken Comments Blood Pressure 125/87 02/29/2020 4:36 AM HEATING AND REFRIGERATION INSPECTOR Pulse 77 02/29/2020 4:36 AM HEATING AND REFRIGERATION INSPECTOR Temperature 36.8 C (98.3 F) 02/29/2020 1:25 AM HEATING AND REFRIGERATION INSPECTOR Respiratory Rate 18 02/29/2020 4:36 AM HEATING AND REFRIGERATION INSPECTOR Oxygen Saturation 99% 02/29/2020 4:36 AM HEATING AND REFRIGERATION INSPECTOR Inhaled Oxygen Concentration - - Weight 78.9 kg (174 lb) 02/29/2020 1:25 AM HEATING AND REFRIGERATION INSPECTOR Height 170.2 cm (5' 7 ) 02/29/2020 1:25 AM HEATING AND REFRIGERATION INSPECTOR Body Mass Index 27.25 02/29/2020 1:25 AM HEATING AND REFRIGERATION INSPECTOR Plan of Treatment Health Maintenance Due Date Last Done Comments Hepatitis C Virus (HCV) Screening 1945 TdaP Immunization 1945 Pneumococcal Immunization (5 0+ years) (1 of 1 - PCV) 1996 Zoster Immunization (1 of 2) 1996 Respiratory Syncytial Virus (RSV) Immunization (Adult) (1 - 1-dose 75+ series) 2021 Influenza Immunization (#1) 2023 SARS-COV-2 Immunization (2 - season) 2023 07/15/2020 Hepatitis B Immunization Aged Out No longer eligible based on patient's age to complete this topic Meningococcal Immunization (ACWY) Aged Out No longer eligible based on patient's age to complete this topic Rotavirus Immunization Aged Out No lo nger eligible based on patient's age to complete this topic Insurance [place]ICARE [place] [id number] Advance Directives * Full Code (Latest Code Status on File) Date Activated Date Inactivated Comments 05/15/2015 7:25 PM 05/19/2015 9:44 PM Full Code: FULL ARREST: Attempt Resuscitation/CPR and use intubation and mechanical ventilation as indicated. PRE-ARREST: Use all measures to stabilize patient. Care Teams Trench Trimmer Fine Relationship Specialty Start Date End Date Randolph De Paz MD [address] [address] PCP - General Family Medicine 01/10/20
--- OUTSIDE RECORDS SUMMARY | 2024-07-10 12:11 | XMS_ITS | Clinical Summary ---
Author Organization [facility] Address [address] [place] [address] Care Team Providers Care Calenderer Name Role Phone Unavailable Primary Care Provider Unavailabl e Source Comments [facility],non-owned Affiliates and Associated Physician Practices is amultiple site organization consisting of ambulatory clinics and hospital sitesin [place], [place], [place] and [place]. This disclosure is being madepursuant to the Care Everywhere program and may not contain all information available regarding this patient. Last updated 18.[facility] Allergies No known active allergies Medications * Be aware that medications may not be up to date on this document. Alwaysverify current medications with the patient. Medication Sig Dispensed Refills Start Date End Date Status famotidine (PEPCID) 10 MG tablet Take 1 (one) tablet by mouth once daily Active metoprolol tartrate (LOPRESSOR) 50 MG tabletIndications:1 2.5mg BID Take 25 mg by mouth once daily Reasons: 12.5mg BID 05/19/2015 Active flecainide (TAMBOCOR) TABSIndications:Pos top check,ESRD (end stage renal disease) (HCC) Take 3 (three) Half Tablet by mouth once daily Active acetaminophen (TYLENOL) 325 MG tablet Take 2 (two) tablets by mouth every 4 hours as needed for Fever or Pain Maximum allowable Acetaminophen amount = 4 Grams (4000 mg) / 24 hours. Active cinacalcet (SENSIPAR) 30 MG tablet Take 30 mg by mouth daily with breakfast Active meclizine (ANTIVERT) 25 MG tablet Take 1 (one) tablet by mouth once daily Patient states he is taking 12.5mg daily Active sevelamer carbonate (RENVELA) 800 MG Take 1 (one) tablet by mouth 3 times daily with meals Active apixaban (ELIQUIS) 2.5 MG tablet Take 1 (one) tablet by mouth 2 times daily 03/13/2020 Active Docusate Sodium (DSS) 100 MG Take 1 capsule by mouth two times daily at 4am and 4pm 03/09/2022 Active tamsulosin (Flomax) 0.4 MG capsule 1 (one) capsule 06/18/2022 Activ e finasteride (Proscar) 5 MG tablet 1 (one) tablet 06/18/2022 Active Active Problems Problem Noted Date Diagnosed Date Encounter regarding vascular access for dialysis for end-stage renal disease 08/18/2022 Renal dialysis device, implant, or graft complic ation 10/14/2015 Chronic renal failure 10/14/2015 ESRD (end stage renal disease) 09/29/2015 Complication of arteriovenous dialysis fistula Family History Medical History Relation Name Comments Kidney Disease Brother 2 Prostate Problem Brother 3 Aneurysm Father brain Hypertension Father Relation Name Status Comments Brother 1 Alive x1 Brother 2 Brother 3 Father Mother Alive Social History Tobacco Use Types Packs/Day Years Used Date Smoking Tobacco: Never Smokeless Tobacco: Never Alcohol Use Standard Drinks/Week Comments No 0 (1 standard drink = 0.6 oz pur e alcohol) Sex and Gender Information Value Date Recorded Sex Assigned at Not on file Gender Identity Not on file Sexual Orientation Not on file Last Filed Vital Signs Vital Sign Reading Time Taken Comments Blood Pressure 134/82 08/19/2022 12:30 PM CDT Pulse 119 08/19/2022 12:30 PM CDT Temperature 36.4 C (97.5 F) 08/19/2022 12:13 PM CDT Respiratory Rate 15 08/19/2022 12:30 PM CDT Oxygen Saturation 95% 08/19/2022 12:30 PM CDT Inhaled Oxygen Concentration - - Weight 71 kg (156 lb 8.4 oz) 08/19/2022 12:13 PM CDT Height 170.2 cm (5' 7 ) 08/19/2022 12:13 PM CDT Body Mass Index 24.52 08/19/2022 12:13 PM CDT Plan of Treatment Health Maintenance Due Date Last Done Comments MEDICARE AWV 12 MONTHS 1945 HEPATITIS C SCREENING 07/02/1964 DTAP/TDAP/TD VACCINES (1 - Tdap) 1965 PNEUMOCOCCAL VACCINE 50+ (1 of 2 - PCV) 1965 HEPATITIS B VACCINE (1 of 3 - Risk Dialysis 4-dose series) 1966 ZOSTER VACCINE (1 of 2) 1996 Respiratory Syncytial Virus (RSV) Vaccine Pt: or over 60 yrs (1 - 1-dose 75+ series) 2021 COVID-19 VACCINE (2 - 2023-2 5 season) 2023 07/15/2020 INFLUENZA VACCINE (#1) 2023 02/22/2022 DEPRESSION SCREENING 04/25/2024 HIB VACCINE Aged Out No longer eligi ble based on patient's age to complete this topic HPV VACCINE Aged Out No longer eligi ble based on patient's age to complete this topic MENINGOCOCCAL (Group B) VACC INE SHARED DECISION-MAKING Aged Out No longer eligibl e based on patient's age to complete this topic MENINGOCOCCAL GROUPS A/C/Y/W VACCINE Aged Out No longer eligible b ased on patient's age to complete this topic
--- OUTSIDE RECORDS SUMMARY | 2024-07-10 12:11 | XMS_ITS | Referral Summary ---
Author Organization [facility] Address [address] [place] [address] Care Team Providers Care Mortgage Loan Coordinator Name Role Phone Randolph De Paz MD Primary Care Provider [phone] Encounters Date Type Department Care Team Description 07/10/2024 9:30 AM CDT Office Visit [facility] [address] [place] [address] Steffanie Feldman NP Right foot pain (Primary Dx); Persistent atrial fibrillation (HCC) from Last 3 Months Allergies No known active allergies Medications acetaminophen (TYLENOL EXTRA STRENGTH) 500 mg tablet take 1 - 2 Tablet by oral route every 6 hours as needed 0 0 06/26/19 16 Active Additional Information Patient not taking.Reported on 07/10/2024 famotidine (PEPCID) 10 mg tablet take 1 tablet by oral route every day as needed 0 0 09/30/19 16 Active meclizine (ANTIVERT) 25 mg tablet Take 0.5 tablets (12.5 mg total) by mouth daily as needed for dizziness Active finasteride (PROSCAR) 5 mg tablet Take 1 tablet (5 mg total) by mouth nightly 06/18/19 23 Active lidocaine-priloc kyler (EMLA) cream Apply topically 03/09/20 22 Active tamsulosin (FLOMAX) 0.4 mg extended release capsule Take 1 capsule (0.4 mg total) by mouth nightly Active clopidogreL (PLAVIX) 75 mg tabletIndication s:coronary artery disease Take 1 tablet (75 mg total) by mouth daily 30 tablet 11 01/28/20 24 025 Active metoprolol tartrate (LOPRESSOR) 25 mg immediate release tabletIndication s:Persistent atrial fibrillation (HCC) Take 1 tablet (25 mg total) by mouth 2 (two) times a day 180 tablet 3 07/11/19 25 Active amiodarone (PACERONE) 200 mg tabletIndication s:Persistent atrial fibrillation (HCC) Take 1 tablet (200 mg total) by mouth daily 90 tablet 3 07/11/19 25 Active metoprolol tartrate (LOPRESSOR) 25 mg immediate release tabletIndication s:Persistent atrial fibrillation (HCC) Take 0.5 tablets (12.5 mg total) by mouth 2 (two) times a day Hold evening dose on HD days (Mon, Wed, Tue) 07/12/19 24 025 Discontin ued(Reord er) aspirin 81 mg chewable tabletIndication s:coronary artery disease Take 1 tablet (81 mg total) by mouth daily 30 tablet 11 01/28/20 24 025 Discontin ued(Other ) amiodarone (PACERONE) 200 mg tabletIndication s:Persistent atrial fibrillation (HCC) Take 1 tablet by mouth once daily 90 tablet 01/30/20 24 025 Discontin ued(Reord er) Active Problems Problem Noted Date Diagnosed Date Presence of Amulet left atrial appendage closure device 01/26/2024 Hypertensive chronic kidney disease with stage 5 chronic kidney disease or end stage renal disease 12/20/2023 Gastroesophageal reflux disease 12/20/2023 Complication of arteriovenous dialysis fistula 0 12/20/2023 Bladder-neck obstruction 12/20/2023 Benign prostatic hyperplasia 12/20/2023 Nonrheumatic tricuspid valve regurgitation 10/05 Aneurysm 05/26/2022 Overview (12/20/2023): Jun 03, 2022 Entered By: MERY PEACOCK Comment: per CT abd and pelvic 05/2022, 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., vascular surgery recommends repeat CtA in 1 year, however pt is a ESRD pt Pleural effusion 05/26/2022 Overview (12/20/2023): Jun 03, 2022 Entered By: MERY PEACOCK Comment: Small right and very minimal left pleural effusions Nonrheumatic mitral valve regurgitation 03/30/20 22 Slow transit constipation 10/13/2021 Sinus tachycardia 10/21/2020 Idiopathic hypotension 10/21/2020 Left carotid bruit 10/21/2020 Paroxysmal atrial fibrillation 09/05/2018 Medication management 02/28/2018 Benign essential HTN 08/23/2017 High risk medication use 11/02/2016 Assessment & Plan (11/02/2016 9:12 PM CDT): Takes flecainide, which needs to be followed closely because of his renal disease. Avoid other QT prolonging agents such as azithromycin, Levaquin etc Evaluation of EKG done 09/15/2016 on my review shows NSR, 1 PVC, normal intervals QTC 425 milliseconds, acceptable. Continue same Obtain flecainide level Follow-up in 6 months, obtain EKG at that time Renal dialysis device, implant, or graft complic ation 10/14/2015 Chronic anticoagulation 09/30/2015 Overview (07/28/2016): Chronic anticoagulation End-stage renal disease 09/30/2015 Overview (07/30/2016): ESRD (end stage renal disease) End-stage renal disease 06/11/2015 Dependence on renal dialysis 06/11/2015 Rapid atrial fibrillation 05/15/2015 Weakness 05/15/2015 Nephrolithiasis 05/15/2015 Resolved Problems Problem Noted Date Diagnosed Date Resolved Date Paroxysmal atrial fibrillation 09/30/2015 09/05/2018 Overview (07/28/2016): Paroxysmal atrial fibrillation Assessment & Plan (11/02/2016 9:10 PM CDT): Had a lot of trouble with AFib RVR, but since we started flecainide his episodes have been significantly reduced. Anticoagulated with warfarin, followed by Dr. Haney. Atrial flutter 09/30/2015 09/05/2018 Overview (07/28/2016): Atypical atrial flutter Drug therapy finding 09/30/2015 017 Overview (07/28/2016): Therapeutic drug monitoring Hemodialysis-associated hypotension 09/30/2015 09/05/2018 Overview (07/30/2016): Hypotension of hemodialysis Assessment & Plan (11/02/2016 9:12 PM CDT): Skips metoprolol in the morning of dialysis Social History Tobacco Use Types Packs/Day Years Used Date Smoking Tobacco: Never Smokeless Tobacco: Never Tobacco Cessation:Counseling Given: Not Answered Alcohol Use Standard Drinks/Week Comments No 0 (1 standard drink = 0.6 oz pur e alcohol) [facility] Utilities Answer Date Recorded In the past 12 months has e [employer], gas, oil, or water Vite threatened to shut off services in your home? No 01/27/2024 Social Connection and Isolat ion Panel [NHANES] Answer Date Recorded In a typical week, how many times do you talk on the phone with family, friends, or neighbors? More than three times a week 01/27/2024 How often do you get togethe r with friends or relatives? More than three times a week 01/27/2024 How often do you attend chur ch or voodoo services? Never 01/27/2024 Do you belong to any clubs o r organizations such as yazdanism groups, unions, fraternal or athletic groups, or school groups? No 01/27/2024 How often do you attend meet ings of the clubs or organizations you belong to? Never 01/27/2024 Are you , , di vorced, , never , or living with a partner? 01/27/2024 AUDIT-C Answer Date Recorded Q1: How often do you have a drink containing alcohol? Never 01/17/2024 Q2: How many drinks containi ng alcohol do you have on a typical day when you are drinking? Patient does not drink Q3: How often do you have si x or more drinks on one occasion? Never 01/17/2024 Overall Financial Resource Strain (CARDIA) Answe r Date Recorded How hard is it for you to pa y for the very basics like food, housing, medical care, and heating? Not hard at all 01/27/2024 Hunger Vital Sign Answer Date Recorded Within the past 12 months, y ou worried that your food would run out before you got the money to buy more. Never true 01/27/20 24 Within the past 12 months, t he food you bought just didn't last and you didn't have money to get more. Never true 01/27/2024 PRAPARE - Transportation Answer Date Re corded In the past 12 months, has l ack of transportation kept you from medical appointments or from getting medications? No 07/2023 In the past 12 months, has l ack of transportation kept you from meetings, work, or from getting things needed for daily living? No 01/27/2024 Housing Stability Vital Sign Answer Aaron e Recorded In the last 12 months, was t here a time when you were not able to pay the mortgage or rent on time? No 01/27/2024 In the past 12 months, how m any times have you moved where you were living? 0 01/27/2024 At any time in the past 12 m [facility], were you homeless or living in a group home (including now)? No 01/27/2024 Personal Safety Answer Date Recorded Have you ever been in or are you currently in a harmful physical or emotional relationship or is someone making you feel afraid or unsafe? 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 Gender Identity Not on file Sexual Orientation Not on file Last Filed Vital Signs Vital Sign Reading Time Taken Comments Blood Pressure 154/80 07/10/2024 9:39 AM CDT Pulse 69 07/10/2024 9:39 AM CDT Temperature 36.8 C (98.2 F) 01/27/2024 3:59 PM CDT Respiratory Rate 17 01/27/2024 3:59 PM CDT Oxygen Saturation 97% 07/10/2024 9:39 AM CDT Inhaled Oxygen Concentration - - Weight 68.5 kg (151 lb) 07/10/2024 9:39 AM CDT Height 170.2 cm (5' 7 ) 07/10/2024 9:39 AM CDT Body Mass Index 23.65 07/10/2024 9:39 AM CDT Plan of Treatment Not on file Medical Devices Implanted Type Area Department Head Device Identifier Shelf Expiration Date Model / Serial / Lot [employer] System Closure Repair Femoral Artery Suture Mediated Perclose Prostyle 63726-54 - [id number] Implanted:Qty: 1 on 01/26/2024 by Chang Barron MD at [facility] [employer] 10/22/2025 [id number] / / [id number] [employer] System Closure Repair Femoral Artery Suture Mediated Perclose Prostyle 47875-92 - [id number] Implanted:Qty: 1 on 01/26/2024 by Chang Barron MD at [facility] [employer] 10/22/2025 [id number] / / [id number] [employer] Percutaneous Transcatheter Amplatzer Amulet 25mm [id number] - [id number] Implanted:Qty: 1 on 01/26/2024 by Chang Barron MD at [facility] 11/23/2027 [id number] / / [id number] Procedures Procedure Name Priority Date/Time Associated Diagnosis Comments HEPATITIS PANEL, ACUTE Routine 01/27/2024 4:35 AM CDT COLONOSCOPY REPORT 06/03/2015 from Last 3 Months or Most Recently Relevant to Health Maintenance Results * Hepatitis panel, acute Blood (01/27/2024 4:35 AM CDT) Hep A IgM Nonreactive Nonreactive Comment: Interpretive Data: If Hep A IgM Ab is reported as Equivocal, a new sample should be drawn in two weeks for testing. Current interpretive data was last revised on 19. Hep B core IgM Nonreactive Nonreactive [facility] Comment: Interpretive Data If HepB Core IgM Ab is reported as Equivocal, a new sample should be drawn in two weeks for testing. Current interpretive data was last revised on 19. Hep C Ab Nonreactive Nonreactive [facility] Comment: Interpretive Data Nonreactive: Antibodies to HCV not detected. Does NOT exclude the possibility of recent exposure to HCV. Equivocal: Equivocal for HCV antibodies. Supplemental molecular testing will be automatically performed to determine infection status in accordance with current CDC screening recommendations. Reactive: Positive for HCV antibodies. This may represent current or past HCV infection. Supplemental molecular testing will be automatically performed to determine current infection status in accordance with current CDC screening recommendations. Interpretive data was last revised on 2019. HepBsAg Nonreactive Nonreactive [facility] Blood 01/27/2024 4:35 AM CDT 01/27/2024 4:58 AM CDT Gisella Haney MD LAB MICROBIOLOGY - GENERAL ORDERABLES Final Result [facility] [address] Department [place] [address] * COLONOSCOPY REPORT (06/03/2015) Anatomical Region Laterality Modality Other Narrative 06/03/2015 Ordered by an unspecified provider. Historical Provider GI PROCEDURE ORDERABLES F inal Result from Last 3 Months or Most Recently Relevant to Health Maintenance Insurance MEDICARE [facility] Address: [address] [address] [place] [address] [facility] MEDICARE [facility] Address: [address] [address] [facility] MEDICARE [facility] Care Teams Mortgage Loan Coordinator Relationship Specialty Start Date End Date Randolph De Paz MD PCP - General 09/30/15
--- OUTSIDE RECORDS SUMMARY | 2024-07-10 12:11 | XMS_ITS | Encounter Summary ---
Author Organization [facility] Address [address] [address] Care Team Providers Care Oral Surgeon Name Role Phone Randolph De Paz MD Primary Care Provider [phone] Encounter Details Date Type Department Care Team (Late st Contact Info) Description 04/27/2016 Orders Only [facility] ProviderRenetta MD [address] [place] [id number] Social History Tobacco Use Types Packs/Day Years Used Date Smoking Tobacco: Never Alcohol Use Standard Drinks/Week Comments No 0 (1 standard drink = 0.6 oz pur e alcohol) Sex and Gender Information Value Date Recorded Sex Assigned at Not on file 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 Historical Provider [facility] Final Result documented in this encounter Visit Diagnoses Not on filedocumented in this encounter Additional Health Concerns Infection Onset Date Last Indicated Resolved Time MRSA Comment:urine 07/02/15 07/04/2015 07/04/2015 12/10/2020 5:00 AM CDT COVID: Suspected 07/31/2023 07/31/2023 07/31/2023 12:04 PM CDT RSV, droplet 07/31/2023 07/31/2023 08/07/2023 3:05 AM CDT documented as of this encounter Care Teams Oral Surgeon Relationship Specialty Start Date End Date Randolph De Paz MD PCP - General 09/30/15 documented as of this encounter
--- OUTSIDE RECORDS SUMMARY | 2024-07-10 12:11 | XMS_ITS | Encounter Summary ---
Author Organization [facility] Address [address] [place] [address] Care Team Providers Care Director Of Revenue Name Role Phone Unavailable Primary Care Provider Unavailabl e Encounter Details Date Type Department Care Team (Late st Contact Info) Description 07/31/2015 [facility] Outpatient Visit [facility] [address] [place] [address] [place] [id number] [address] Social History Tobacco Use Types Packs/Day Years Used Date Smoking Tobacco: Never Assessed Sex and Gender Information Value Date Recorded Sex Assigned at Not on file Gender Identity Not on file Sexual Orientation Not on file documented as of this encounter Plan of Treatment Not on file documented as of this encounter Visit Diagnoses Not on filedocumented in this encounter
--- OUTSIDE RECORDS SUMMARY | 2024-07-10 12:11 | XMS_ITS | Clinical Summary ---
Author Organization [facility] Address [address] [place] [id number] Care Team Providers Care Insurance Healthcare Representative Name Role Phone Randolph De Paz MD Primary Care Provider [phone] Allergies No known active allergies Medications acetaminophen [...] evening dose on HD days (Mon, Wed, Fri) 07/12/19 24 025 Discontin ued(Reord er) aspirin [...] Skips metoprolol in the morning of dialysis Encounters Date Type Department Care Team Description 07/10/2024 9:30 AM CDT Office Visit [facility] Cardiology [address] [place] [address] Steffanie Feldman NP Right foot pain (Primary Dx); Persistent atrial fibrillation (HCC) from Last 3 Months Surgical History Surgery Date Site/Laterality Comments TUNNELED LINE PLACEMENT <5 YEARS 05/26/2015 N/A COLONOSCOPY AV FISTULA PLACEMENT 04/25/2015 - 04/24/2016 AV FISTULA REPAIR CYSTOSCOPY 04/25/2015 - 04/24/2016 Medical History Medical History Date Comments Hypertension Hypertension Atrial fibrillation (HCC) PAF (paroxysmal atrial fibrillation) (HCC) Nonrheumatic mitral valve regurgitation Nonrheumatic tricuspid valve regurgitation GERD (gastroesophageal reflux disease) Chronic kidney disease Kidney stone ESRD (end stage renal disease) on dialysis (HCC) HD M-W-F Vertigo BPH (benign prostatic hyperplasia) Cataract Chronic knee pain Family History Medical History Relation Name Comments Hypertension Father Hypertension; Other Father Aneurysm of tho racic aorta; Relation Name Status Comments Father Mother Social History Tobacco Use Types Packs/Day Years Used Date Smoking Tobacco: Never Smokeless Tobacco: Never Tobacco Cessation:Counseling Given: Not Answered Alcohol Use Standard Drinks/Week Comments No 0 (1 standard drink = 0.6 oz pur e alcohol) [facility] Utilities Answer Date Recorded In the past 12 months has th e electric, gas, oil, or water company threatened to shut off services in your [...] often do you attend chur ch or yazdanism services? Never 01/27/2024 Do you belong to any clubs o r organizations such as temple groups, unions, fraternal or athletic groups, or [...] any time in the past 12 [facility], were you homeless or living in a long-term (including now)? No 01/27/2024 Personal Safety Answer Date Recorded Have you ever been in or are you currently in a harmful physical or emotional relationship or is someone making you feel afraid or unsafe? 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 Gender Identity Not on file Sexual Orientation Not on file Obstetrics History Last Filed Vital Signs Vital Sign Reading [...] 07/10/2024 9:39 AM CDT Plan of Treatment Health Maintenance Due Date Last Done Comments Depression Screening 1945 Zoster Vaccine (1 of 2) 1996 Well Visit 65+ 07/08/2011 Pneumococcal vaccine 65+ (2 of 2 - PCV) 10/07/2023 10/06/2022 Influenza Vaccine (#1) 2023 01/28/2023, 2021 Fall Risk Assessment 01/26/2025 01/27/2024 DTaP/Tdap/Td Vaccine (2 - Td or Tdap) 10/19/2032 10/19/2022 Colon Cancer Screening-CT Colonography Discontinued 06/03/2015 Colon Cancer Screening-Colonoscopy Discontinued 2015 Colon Cancer Screening-DNA Stool Discontinued 06/03/19 16 Colon Cancer Screening-FIT Discontinued 06/03/2015 Colon Cancer Screening-FOBT Discontinued 06/03/2015 Colon Cancer Screening-Sigmoidoscopy Discontinued 12/2015 Colorectal Cancer Screening Discontinued Hepatitis B Screening Completed 01/27/2024 Hepatitis C Screening Completed 01/27/2024 , 10/22/2015, 05/23/2015 Medical Devices Implanted Type Area Certified Registered Locksmith Device Identifier Shelf Expiration Date Model / Serial / Lot [employer] System Closure Repair Femoral Artery Suture Mediated Perclose Prostyle 05400-64 - [id number] Implanted:Qty: 1 on 01/26/2024 by Chang Barron MD at [facility] [employer] 10/22/2025 [id number] / / [id number] [employer] System Closure Repair Femoral Artery Suture Mediated Perclose Prostyle 36141-83 - [id number] Implanted:Qty: 1 on 01/26/2024 by Chang Barron MD at [facility] 10/22/2025 [id number] / / [id number] [employer] Percutaneous Transcatheter Amplatzer Amulet 25mm [id number] - [id number] Implanted:Qty: 1 on 01/26/2024 by Chang Barron MD at [facility] 11/23/2027 [id number] / / [id number] Procedures Procedure Name Priority Date/Time Associated Diagnosis [...] 19. Hep B core IgM Nonreactive Nonreactive [facility] Comment: Interpretive Data If HepB Core IgM Ab is reported as Equivocal, a new sample should be drawn in two weeks for testing. Current interpretive data was last revised on 19. Hep C Ab Nonreactive Nonreactive [facility] Comment: Interpretive Data Nonreactive: Antibodies to HCV [...] last revised on 2019. HepBsAg Nonreactive Nonreactive [facility] Blood 01/27/2024 4:35 AM CDT 01/27/2024 4:58 AM CDT Gisella Haney MD LAB MICROBIOLOGY - GENERAL [place] [id number] [address] [place] [address] * COLONOSCOPY REPORT (06/03/2015) Anatomical Region Laterality Modality Other Narrative 06/03/2015 Ordered by an unspecified provider. us Historical Provider GI PROCEDURE ORDERABLES F inal Result from Last 3 Months or Most Recently Relevant to Health Maintenance Insurance MEDICARE [facility] MEDICARE [facility] MEDICARE [facility] Care Teams Insurance Healthcare Representative Relationship Specialty Start Date End Date Randolph De Paz MD PCP - General 09/30/15
--- OUTSIDE RECORDS SUMMARY | 2024-07-10 12:11 | XMS_ITS | Clinical Summary ---
Author Organization [facility] Facility Address [address] [place] [id number] Care Team Providers Care Steel Fabricating Supervisor Name Role Phone Unavailable Primary Care Provider Unavailabl e Social History Tobacco Use Types Packs/Day Years Used Date Smoking Tobacco: Never Assessed Sex and Gender Information Value Date Recorded Sex Assigned at Not on file Legal Sex Male 3:38 PM EST Gender Identity Not on file Sexual Orientation Not on file Plan of Treatment Health Maintenance Due Date Last Done Comments Pneumococcal Vaccine: 65+ Ye ars (1 of 2 - PCV) 1951 Influenza Vaccine (#1) 2023 Hepatitis B Vaccine Aged Out No longe r eligible based on patient's age to complete this topic Insurance MEDICARE [facility]
--- OUTSIDE RECORDS SUMMARY | 2024-07-10 12:11 | XMS_ITS | Encounter Summary ---
Author Organization [facility] Healthcare Address [address] [place] [address] Care Team Providers Care Route Clerk Name Role Phone Randolph De Paz MD Primary Care Provider [phone] Reason for Visit * Reason Comments Follow-up 5mo Encounter Details Date Type Department Care Team (Late st Contact Info) Description 07/10/2024 9:30 AM CDT Office Visit [facility] Medical [facility] Cardiology [address] [place] [address] Steffanie Feldman NP [address] [place] [address] Right foot pain (Primary Dx); Persistent atrial fibrillation (HCC) Social History Tobacco Use Types Packs/Day Years Used Date Smoking Tobacco: Never Smokeless Tobacco: Never Tobacco Cessation:Counseling Given: Not Answered Alcohol Use Standard Drinks/Week Comments No 0 (1 standard drink = 0.6 oz pur e alcohol) [facility] Utilities Answer Date Recorded In the past 12 months has [employer], gas, oil, or water [employer] threatened to shut off services in your [...] week 01/27/2024 How often do you attend [facility] or gnosticist services? Never 01/27/2024 Do you belong to any clubs o r organizations such as mandaeism groups, unions, fraternal or athletic groups, or [...] any time in the past [address] [facility], were you homeless or living in a long-term (including now)? No 01/27/2024 Personal Safety Answer Date Recorded Have you ever been in or are you currently in a harmful physical or emotional relationship or is someone making you feel afraid or unsafe? 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 Gender Identity Not on file Sexual Orientation Not on file documented as of this encounter Last Filed Vital Signs Vital Sign Reading Time Taken Comments Blood Pressure 154/80 07/10/2024 9:39 AM CDT Pulse 69 07/10/2024 9:39 AM CDT Temperature - - Respiratory Rate - - Oxygen Saturation 97% 07/10/2024 9:39 AM CDT Inhaled Oxygen Concentration - - Weight 68.5 kg (151 lb) 07/10/2024 9:39 AM CDT Height 170.2 cm (5' 7 ) 07/10/2024 9:39 AM CDT Body Mass Index 23.65 07/10/2024 9:39 AM CDT documented in this encounter Ordered Prescriptions Prescription Sig Dispense Quantity Refills Last Filled Start Date End Date amiodarone (PACERONE) 200 mg tabletIndications:P ersistent atrial fibrillation (HCC) Take 1 tablet (200 mg total) by mouth daily 90 tablet 3 07/10/2024 metoprolol tartrate (LOPRESSOR) 25 mg immediate release tabletIndications:P ersistent atrial fibrillation (HCC) Take 1 tablet (25 mg total) by mouth 2 (two) times a day 180 tablet 3 07/10/2024 documented in this encounter Plan of Treatment Scheduled Orders Name Type Priority Associated Diagnoses Orde r Schedule XR Foot Right Weight-Bearing 3 or More Views Imaging Schedule Routine, Read Routine (OP Routine) Right foot pain Expected: 07/10/2024, Expires: 07/10/2025 documented as of this encounter Visit Diagnoses Diagnosis Right foot pain- Primary Pain in soft tissues of limb Persistent atrial fibrillation (HCC) Atrial fibrillation documented in this encounter Discontinued Medications Medication Sig Discontinue Reason Start Date End Da te aspirin 81 mg chewable tabletIndications:coronar y artery disease Take 1 tablet (81 mg total) by mouth daily Other 01/28/2024 07/10/2024 metoprolol tartrate (LOPRESSOR) 25 mg immediate release tabletIndications:Persist ent atrial fibrillation (HCC) Take 0.5 tablets (12.5 mg total) by mouth 2 (two) times a day Hold evening dose on HD days (Mon, Wed, Fri) Reorder 07/12/2023 07/10/2024 amiodarone (PACERONE) 200 mg tabletIndications:Persist ent atrial fibrillation (HCC) Take 1 tablet by mouth once daily Reorder 01/30/2024 07/10/2024 documented as of this encounter Care Teams Route Clerk Relationship Specialty Start Date End Date Randolph De Paz MD PCP - General 09/30/15 documented as of this encounter
--- OUTSIDE RECORDS SUMMARY | 2024-07-10 12:11 | XMS_ITS | Continuity of Care Document ---
Author Name Auto Generated, Auto Generated Organization [facility] Support Name Relationship Address Phone BriandaSamara mckeon Emergency Contact [address] [place] [address] Danyel Sterling Self [address] [place] [address] Danyel Sterling Financial Responsible Democrat [address] [place] [address] Leslie Sterling Emergency Contact 2 Unknown [phone] Summary Purpose Consult/Referral Allergies, Adverse Reactions, Alerts No Known Allergies Medications No Known Medications Conditions/Problems Problem/Diagnosis Awareness of Diagnosis Code (ICD-10) Onset Date (Start Date) Resolution Date (End Date) Status Source Comments ACUTE KIDNEY FAILURE, UNSPECIFIED N17.9 06/11/19 16 Active MD Randolph De Paz OTHER OBSTRUCTIVE AND REFLUX UROPATHY N13.8 06/11/19 16 Active MD Randolph De Paz PRESENCE OF UROGENITAL IMPLANTS Z96.0 06/11/19 16 Active MD Randolph De Paz END STAGE RENAL DISEASE N18.6 06/11/19 16 Active MD Randolph De Paz DEPENDENCE ON RENAL DIALYSIS Z99.2 06/11/19 16 Active MD Randolph De Paz PRESENCE OF OTHER VASCULAR IMPLANTS AND GRAFTS Z95.828 06/11/19 16 Active MD Randolph De Paz BENIGN PROSTATIC HYPERPLASIA WITHOUT LOWER URINARY TRACT SYMPTOMS N40.0 06/11/19 16 Active MD Randolph De Paz ANEMIA IN CHRONIC KIDNEY DISEASE D63.1 06/11/19 16 Active MD Randolph De Paz THROMBOCYTOPENIA, UNSPECIFIED D69.6 06/11/19 16 Active MD Randolph De Paz UNSPECIFIED ATRIAL FIBRILLATION I48.91 06/11/19 16 Active MD Randolph De Paz ESSENTIAL (PRIMARY) HYPERTENSION I10 06/11/19 16 Active MD Randolph De Paz UNSPECIFIED ABNORMALITIES OF GAIT AND MOBILITY R26.9 06/11/19 16 Active MD Randolph De Paz MUSCLE WEAKNESS (GENERALIZED) M62.81 06/11/19 16 Active MD Randolph De Paz Procedures No Known Procedures
== END 2024-07-10 10:44 | disposition home or self-care (01) ==
PROVIDERS: PCP Family Medicine; Visit Provider Nurse Practitioner Adult Health
DX: M79.671 Pain in right foot (principal)
CPT/HCPCS: 73630